=== PATIENT | male | born 1990 | race African-American/Black ===

== ENCOUNTER 2020-03-09 15:14 | Emergency (ER) | payer MEDICAID, SELFPAY ==
[2020-03-09 15:21] VITALS: BP 156/105; PULSE 88; RESP 20; TEMP 36.1; O2SAT 98
--- NOTE | 2020-03-09 15:30 | ED.EAR ---
HPI - Ear Problem General Chief complaint: Ear Stated complaint: ear ache Time Seen by Provider: 03/09/20 15:23 Source: patient Mode of arrival: ambulatory Limitations: no limitations History of Present Illness HPI Narrative: Patient is a 30-year-old male who presents complaining of right ear pain x2 to 3 days. He reports multiple ear infections in the past. He denies taking [id number] medications for pain. He denies all other complaints. MD Complaint: ear pain Location: right ear Related Data Allergies Allergy/AdvReac Type Severity Reaction Status Date / Time amoxicillin AdvReac Unknown Hives Verified 03/09/20 15:43 Review of Systems Review of Systems: Narrative: CONSTITUTIONAL: Denies fever, chills, or sweats. EYES: Denies visual changes, redness, or discharge. ENT: Denies rhinorrhea, congestion, sore throat, reports right otalgia CARDIOVASCULAR: Denies chest pain, palpitations, or edema. RESPIRATORY: Denies cough or dyspnea. GASTROINTESTINAL: Denies abdominal pain, nausea, vomiting, or diarrhea. GENITOURINARY: Denies dysuria or hematuria. SKIN: Denies rash or itching. MUSCULOSKELETAL: Denies back pain, joint pain, or myalgia. NEUROLOGIC: Denies headache, numbness, dizziness, or weakness. PSYCHIATRIC: Denies anxiety or depression. [facility] Past Medical History Medical History (Updated 03/09/20 @ 15:43 by HIMANSHU Langford) No significant family history Otitis media Surgical History Surgical History (Updated 03/09/20 @ 15:32 by HIMANSHU Langford) No significant past surgical history Social History Social History (Updated 03/09/20 @ 15:33 by HIMANSHU Langford) Smoking status: Never smoker Alcohol intake: current Alcohol use details: Socially Substance use: never Exam Narrative: Exam Narrative: GENERAL: Well-appearing, well-nourished, and in no acute distress. HEAD: Normocephalic, atraumatic. EYES: EOMI. No redness or drainage. Conjunctiva are normal. ENT: Mucous membranes pink and moist. Nares clear. No rhinorrhea. Right TM erythematous, cloudy and bulging, left TM normal, throat normal. Uvula midline. NECK: AROM. Supple. No lymphadenopathy. CHEST: No respiratory distress. Clear to auscultation. HEART: Regular rate and rhythm. No murmur appreciated. Normal peripheral pulses. SKIN: Warm, dry, no rash. NEURO: No focal deficits. Alert and oriented x3. Gait steady. PSYCH: Normal affect. No signs of depression or anxiety. Course Vital Signs Vital signs: Vital Signs Temperature 36.1 C L 03/09/20 15:21 Pulse Rate 88 03/09/20 15:21 Respiratory Rate 20 03/09/20 15:21 Blood Pressure 156/105 H 03/09/20 15:21 Pulse Oximetry 98 03/09/20 15:21 Temperature 36.1 C L 03/09/20 15:21 Pulse Rate 88 03/09/20 15:21 Respiratory Rate 20 03/09/20 15:21 Blood Pressure 156/105 H 03/09/20 15:21 Pulse Oximetry 98 03/09/20 15:21 Reviewed. Patient has been instructed to follow-up with his PCP regarding his blood pressure. Medical Decision Making MDM Narrative Medical decision making narrative: Patient has acute right otitis media. Patient be treated with antibiotics at this time. He reports a few episodes of otitis media and otitis externa in the past 5 years. He reports seeing ENT in the past as well. Patient to be started on Augmentin at this time and to follow-up with ENT or pcp as needed. Patient is stable for discharge to home with outpatient follow-up. Differential Diagnosis Differential Diagnosis: Otitis media Vital Signs Vital Signs: Vital Signs Temperature 36.1 C L 03/09/20 15:21 Pulse Rate 88 03/09/20 15:21 Respiratory Rate 20 03/09/20 15:21 Blood Pressure 156/105 H 03/09/20 15:21 Pulse Oximetry 98 03/09/20 15:21 Temperature 36.1 C L 03/09/20 15:21 Pulse Rate 88 03/09/20 15:21 Respiratory Rate 20 03/09/20 15:21 Blood Pressure 156/105 H 03/09/20 15:21 Pulse Oximetry 98 03/09/20 15:21 Critical Care Ti
[2020-03-09 16:15] VITALS: BP 116/68; PULSE 75; RESP 16; O2SAT 98
== END 2020-03-09 16:16 | disposition home or self-care (01) ==
PROVIDERS: Emergency Provider Nurse Practitioner
DX: H66.001 Acute suppurative otitis media without spontaneous rupture of ear drum, right ear (principal)
CPT/HCPCS: 99283

== ENCOUNTER 2021-06-06 08:17 | Emergency (ER) | payer OTHER, SELFPAY ==
--- NOTE | ~2021-06-06 | XR_ITS ---
EXAMINATION: XR chest 1V portable 06/06/2021 08:48 INDICATION: Cough and congestion. PROCEDURE: AP portable chest COMPARISON: No prior studies for comparison. FINDINGS: The lungs are clear. The cardiomediastinal silhouette is within normal limits. There are no pleural effusions. There is no pneumothorax suspected. IMPRESSION: 1: NO ACUTE CARDIOPULMONARY DISEASE. Reviewed, dictated and finalized at location [facility]. [facility]
[2021-06-06 08:26] VITALS: BP 143/101; PULSE 90; RESP 18; TEMP 36.4; O2SAT 99
--- NOTE | 2021-06-06 08:39 | ED.URI ---
HPI - URI/Sore Throat General Chief Complaint: Upper Respiratory Infection Stated Complaint: cough, sob, asthma Time Seen by Provider: 06/06/21 08:39 Source: patient Mode of arrival: ambulatory Limitations: no limitations History of Present Illness HPI Narrative: The patient is a 31-year-old male with a history of asthma presenting for evaluation of cough. Patient states that he has felt unwell over the past week with increasing cough and right-sided rib pain. Patient states he has had 2 negative Covid tests. He denies any frontal chest pain. Patient states he has had coughing and mild wheezing. States that he was diagnosed with asthma many years ago does not currently have an albuterol inhaler is not currently on any steroid therapy. Patient states in the past when this does happen he has benefited greatly from steroid therapy. He denies fever, chills, nausea, vomiting, abdominal pain or diarrhea. He denies current chest pain. He denies pleuritic pain. No calf swelling or leg pain. No loss of sense of taste or smell. Related Data Allergies Allergy/AdvReac Type Severity Reaction Status Date / Time amoxicillin AdvReac Unknown Hives Verified 06/06/21 08:28 Review of Systems Review of Systems: CONSTITUTIONAL: Denies fever, chills, or sweats. EYES: Denies visual changes, redness, or discharge. ENT: Reports rhinorrhea and congestion CARDIOVASCULAR: Denies chest pain, palpitations, or edema. RESPIRATORY: Reports cough without shortness of breath GASTROINTESTINAL: Denies abdominal pain, nausea, vomiting, or diarrhea. GENITOURINARY: Denies dysuria or hematuria. SKIN: Denies rash or itching. MUSCULOSKELETAL: Denies back pain, joint pain, or myalgia. NEUROLOGIC: Denies headache, numbness, or weakness. [facility] Past Medical History Medical History No significant family history Otitis media Surgical History Surgical History No significant past surgical history Social History Social History Smoking status: Never smoker Alcohol intake: current Alcohol use details: Socially Substance use: never Exam Narrative: GENERAL: Awake, alert, conversant HEAD: Normocephalic, atraumatic. EYES: PERRLA and EOMI. ENT: Nares clear, no rhinorrhea or epistaxis. Mucous membranes moist. NECK: Supple. CHEST: No respiratory distress, breathing even and non labored, no reproducible chest wall pain. Mild expiratory wheezing bilateral bases. HEART: Regular rate, sinus rhythm ABDOMEN:Non distended, non tender EXTREMITIES: Normal range of motion. No edema. No calf tenderness bilaterally. SKIN: Warm, dry, no rash. NEURO:No focal deficits. Alert and oriented x3 Course Vital Signs Vital signs: Vital Signs Temperature 36.4 C L 06/06/21 08:26 Pulse Rate 90 06/06/21 08:26 Respiratory Rate 18 06/06/21 08:26 Blood Pressure 143/101 H 06/06/21 08:26 Pulse Oximetry 99 06/06/21 08:26 Temperature 36.4 C L 06/06/21 08:26 Pulse Rate 90 06/06/21 08:52 Respiratory Rate 18 06/06/21 08:52 Blood Pressure 143/101 H 06/06/21 08:26 Pulse Oximetry 99 06/06/21 08:26 MDM - URI/Sore Throat MDM Narrative Medical decision making narrative: Patient presenting for evaluation of cough with concern for asthma exacerbation. Patient with cough, congestion this week, right-sided rib pain. On exam, patient is hemodynamically stable, no reproducible chest pain on exam. EKG without acute ischemic changes. Labs are reassuring. Covid swab is negative. No leukocytosis or anemia. Chest x-ray without evidence of pneumothorax, infiltrates. No evidence of rib fracture. At this point, would recommend continued care with albuterol, steroids. He is not having any significant shortness of breath. No hypoxia. PE seems unlikely and he does not meet PERC criteria. Presentation seem
[2021-06-06] MEDS: IPRATROPIUM BR 0.02% INH SOLN 0.5 MG/2.5 ML VIAL INHALATION (08:51)
[2021-06-06] MEDS: ALBUTEROL SULFATE NEB 2.5 MG/0.5 ML INH 5 MG INHALATION (08:51)
[2021-06-06 08:52] VITALS: PULSE 90; RESP 18
--- NOTE | 2021-06-06 09:14 | ECG_ITS ---
Measurements Intervals [place] Rate: 82 P: 41 CT: 156 QRS: -7 QRSD: 117 T: 37 QT: 341 QTc: 400 Interpretive Statements SINUS RHYTHM INCOMPLETE RIGHT BUNDLE BRANCH BLOCK NONSPECIFIC ST ELEVATION IN DIFFUSE LEADS BORDERLINE ECG Electronically Signed On 06-06-2021 15:59:53 [employer] by Clyde Trammell D.O.
[2021-06-06 09:40] LABS: Alanine Aminotransferase 22 U/L (4-50); Albumin Level 4.4 g/dL (3.5-5.1); Alkaline Phosphatase 98 U/L (38-126); Anion Gap 7 mmol/L (8-16); Aspartate Amino Transferase 22 U/L (17-59); Bilirubin,Total 0.5 mg/dL (0.2-1.3); Blood Urea Nitrogen 11 mg/dL (9-20); Calcium 8.8 mg/dL (8.4-10.2); Carbon Dioxide 27 mmol/L (22-30); Chloride 105 mmol/L (98-107); Estimated CRCL calculation 125 ml/min; Estimated Glomerular Filt Rate > 60; Glucose 109 mg/dL (65-110); Potassium 3.7 mmol/L (3.4-5.0); Sodium 139 mmol/L (137-145)
[2021-06-06 09:46] LABS: Basophils Percent Auto 0.4 % (0.2-1.2); Eosinophils Absolute Auto 0.3 K/mm3 (0-0.3); Eosinophils Percent Auto 5.2 % (0-4.4); Hemoglobin 15.1 g/dL (14.0-18.0); Immature Granulocyte Absolute 0.01 K/mm3 (0.00-0.031); Immature Granulocyte Percent A 0.2 % (0-0.5); Lymphocytes Absolute Auto 1.51 K/mm3 (0.9-3.2); Lymphocytes Percent Auto 29.1 % (18.3-44.2); Mean Corpuscular HGB Conc 33.6 g/dl (32-36); Mean Corpuscular Hemoglobin 26.6 pg (26-34); Mean Corpuscular Volume 79.4 fl (80-100); Mean Platelet Volume 10.2 fl (7.4-10.4); Monocytes Absolute Auto 0.5 K/mm3 (0.1-0.6); Monocytes Percent Auto 9.2 % (2.6-8.5); Neutrophils Absolute Auto 2.9 K/mm3 (1.3-6.7); Neutrophils Percent Auto 55.9 % (45.5-73.1); Platelet Count Result 248 k/mm3 (150-375); Red Blood Count 5.67 M/mm3 (4.6-6.20); Red Cell Distribution Width 12.9 % (11.5-14.5); White Blood Count 5.2 K/mm3 (4.5-10.0)
[2021-06-06 10:01] LABS: Troponin I < 0.012 ng/mL (0.000-0.034)
[2021-06-06 10:26] LABS: SARS-CoV-2 RNA PCR Negative
[2021-06-06 10:45] VITALS: BP 142/95; PULSE 85; RESP 18; TEMP 36.7; O2SAT 99
== END 2021-06-06 10:46 | disposition home or self-care (01) ==
PROVIDERS: Emergency Provider Emergency Medicine
DX: J06.9 Acute upper respiratory infection, unspecified (principal); J45.901 Unspecified asthma with (acute) exacerbation; Z20.822 Contact with and (suspected) exposure to COVID-19; I45.10 Unspecified right bundle-branch block
CPT/HCPCS: 36415; 71045; 80053; 84484; 85025; 93005; 94640; 99284; C9803; U0003; U0005

== ENCOUNTER 2022-01-09 21:29 | Emergency (ER) | payer OTHER, SELFPAY ==
[2022-01-09 21:31] VITALS: BP 152/98; PULSE 75; RESP 16; TEMP 36.3; O2SAT 99
--- NOTE | 2022-01-09 21:48 | ED.EAR ---
HPI - Ear Problem General Chief complaint: Ear <Sherley Hoty PA-C - Last Filed: 01/09/22 21:54> Stated complaint: right ear infection <FLORY Hays Last Filed: 01/09/22 21:54> Time Seen by Provider: 01/09/22 21:35 <Sherley Hoyt PA-C - Last Filed: 01/09/22 21:54> Source: patient <FLORY Hays Last Filed: 01/09/22 21:54> Mode of arrival: ambulatory <FLORY Hays Last Filed: 01/09/22 21:54> Limitations: no limitations <FLORY Hays Last Filed: 01/09/22 21:54> History of Present Illness HPI Narrative: Patient presents to the emergency department for right ear pain noted over the last 2 days. Reports swelling in the ear. Reports history of frequent ear infections. He sees an ENT doctor for this. Denies fevers. <Sherley Hoyt PA-C - Last Filed: 01/09/22 21:54> Related Data Home medications: Home Medications Medication Instructions Recorded Confirmed No Home Medications 01/09/22 01/09/22 <FLORY Hays Last Filed: 01/09/22 21:54> Allergies/adverse reactions: Allergies Allergy/AdvReac Type Severity Reaction Status Date / Time amoxicillin AdvReac Unknown Hives Verified 01/09/22 21:29 <FLORY Hays Last Filed: 01/09/22 21:54> Review of Systems Review of Systems: CONSTITUTIONAL: Denies fever ENT: Reports otalgia. <FLORY Hays Last Filed: 01/09/22 21:54> All systems reviewed & are unremarkable except as noted in HPI and below <FLORY Hays Last Filed: 01/09/22 21:54> [facility] Past Medical History Medical History: Medical History No significant family history Otitis media <Sherley Hoyt PA-C - Last Filed: 01/09/22 21:54> Surgical History Surgical History: Surgical History No significant past surgical history <Sherley Hoyt PA-C - Last Filed: 01/09/22 21:54> Social History Social History: Social History Smoking status: Never smoker Alcohol intake: current Alcohol use details: Socially Substance use: never <Sherley Hoyt PA-C - Last Filed: 01/09/22 21:54> Exam Narrative: GENERAL: Well-appearing, well-nourished, and in no acute distress. HEAD: Normocephalic, atraumatic. EYES: EOMI. ENT: Bilateral TMs pearly oneill non-bulging. Right external auditory canal with moderate edema and irritation. No mastoid tenderness or erythema NECK: Supple. No adenopathy or masses. CHEST: No respiratory distress. HEART: Regular rate EXTREMITIES: Normal range of motion. No edema. SKIN: Warm, dry, no rash. NEURO: No focal deficits. Alert and oriented x3. PSYCH: Normal mood and affect <Sherley Hoyt PA-C - Last Filed: 01/09/22 21:54> Course [employer]/PA Physician Supervision For this encounter, I have reviewed the [facility] documentation, treatment plan and medical decision making: I was available for consultation as needed. [] <Geo Dickinson DO - Last Filed: 01/09/22 23:16> Vital Signs Vital signs: Vital Signs Temperature 97.3 F L 01/09/22 21:31 Pulse Rate 75 01/09/22 21:31 Respiratory Rate 16 01/09/22 21:31 Blood Pressure 152/98 H 01/09/22 21:31 Pulse Oximetry 99 01/09/22 21:31 Temperature 97.3 F L 01/09/22 21:31 Pulse Rate 75 01/09/22 21:31 Respiratory Rate 16 01/09/22 21:31 Blood Pressure 152/98 H 01/09/22 21:31 Pulse Oximetry 99 01/09/22 21:31 <Sherley Hoyt PA-C - Last Filed: 01/09/22 21:54> Vital Signs Temperature 97.3 F L 01/09/22 21:31 Pulse Rate 75 01/09/22 21:31 Respiratory Rate 16 01/09/22 21:31 Blood Pressure 152/98 H 01/09/22 21:31 Pulse Oximetry 99 01/09/22 21:31 Temperature 97.3 F L 01/09/22 21:31 Pulse Rate 75 01/09/22 21:31 Respiratory Rate 16 01/09/22 21:31 Blood Pre
[2022-01-09] MEDS: IBUPROFEN 600 MG TABLET PO (22:02)
[2022-01-09] MEDS: CIPROFLOXACIN HCL 0.3% OP SOLN 2.5 ML BTL 3 DROP RIGHT EAR (22:03)
== END 2022-01-09 22:09 | disposition home or self-care (01) ==
LOC: ANHED 21:54
PROVIDERS: Emergency Provider Emergency Medicine
DX: H60.501 Unspecified acute noninfective otitis externa, right ear (principal)
CPT/HCPCS: 99283; A9270

== ENCOUNTER 2023-03-29 04:44 | Emergency (ER) | payer OTHER, SELFPAY ==
[2023-03-29 04:47] VITALS: BP 161/104; PULSE 86; RESP 20; TEMP 37.2; O2SAT 98
--- NOTE | 2023-03-29 07:17 | PC.NURSE ---
Report to EVELYN Frank
--- NOTE | 2023-03-29 07:23 | ED.URI ---
HPI - URI/Sore Throat General Chief Complaint: Upper Respiratory Infection Stated Complaint: Cough Time Seen by Provider: 03/29/23 05:59 History of Present Illness HPI Narrative: This is a 33-year-old male, with no significant past medical history, presenting to the emergency department complaining of cough sore chest pain, congestion and drainage from the right eye for the past several days. Patient states he has been exposed to his 3-year-old son with similar symptoms. He rates his pain 4/10. He has no other complaints at this time. Related Data Allergies Allergy/AdvReac Type Severity Reaction Status Date / Time amoxicillin AdvReac Unknown Hives Verified 01/09/22 21:29 Review of Systems Review of Systems: CONSTITUTIONAL: Denies fever, chills, or sweats. EYES: Right eye redness and discharge denies visual changes ENT: Rhinorrhea, congestion, sore throat denies otalgia. CARDIOVASCULAR: Denies chest pain, palpitations, or edema. RESPIRATORY: Cough productive of nonbloody yellow mucus denies dyspnea. GASTROINTESTINAL: Denies abdominal pain, nausea, vomiting, or diarrhea. GENITOURINARY: Denies dysuria or hematuria. SKIN: Denies rash or itching. MUSCULOSKELETAL: Generalized myalgias denies back pain, joint pain NEUROLOGIC: Denies headache, numbness, dizziness, or weakness. PSYCHIATRIC: Denies anxiety or depression. [facility] Past Medical History Medical History No significant family history Otitis media Surgical History Surgical History No significant past surgical history Social History Social History Smoking status: Never smoker Alcohol intake: current Alcohol use details: Socially Substance use: never Exam Narrative: GENERAL: Well-developed, well-nourished, and in no acute distress. HEAD: Normocephalic, atraumatic. EYES: PERRLA and EOMI. mild scleral injection and mucoid drainage noted from the right eye ENT: Nares with yellow mucus, no rhinorrhea or epistaxis. Mucous membranes moist. Oropharynx without tonsillar hypertrophy exudate or other lesions. Bilateral TMs pearly oneill nonbulging CHEST: Clear to auscultation. No respiratory distress. No wheezes rales or rhonchi HEART: Regular rate and rhythm. No murmur heard. Normal peripheral pulses. ABDOMEN: Soft, nontender, nondistended, normal active bowel sounds. EXTREMITIES: Normal range of motion. No edema. SKIN: Warm, dry, no rash. NEURO: Alert and oriented x3. Moving all 4 limbs purposefully. PSYCH: Normal mood and affect. Course Course Emergency Course: 08:28 - The patient tested negative for influenza, RSV and COVID. I suspect other viral upper respiratory infection and possible superseding bacterial conjunctivitis of the right eye. Will discharge with antibiotic eyedrops and recommendations for decongestants and NSAIDs. Discussed return and emergency precautions including signs/symptoms of respiratory distress and ACS. The patient voiced understanding and is comfortable with the plan. All questions answered to his satisfaction Vital Signs Vital signs: Vital Signs Temperature 98.9 F 03/29/23 04:47 Pulse Rate 86 03/29/23 04:47 Respiratory Rate 20 03/29/23 04:47 Blood Pressure 161/104 H 03/29/23 04:47 Pulse Oximetry 98 03/29/23 04:47 Oxygen Delivery Room Air 03/29/23 04:47 Temperature 98.9 F 03/29/23 04:47 Pulse Rate 86 03/29/23 04:47 Respiratory Rate 20 03/29/23 04:47 Blood Pressure 161/104 H 03/29/23 04:47 Pulse Oximetry 98 03/29/23 04:47 Oxygen Delivery Room Air 03/29/23 05:50 MDM - URI/Sore Throat MDM Narrative Medical decision making narrative: Plan: Labs, pain control, reassess Differential Diagnosis Differential diagnosis: Likely upper respiratory infection, viral infection, influenza and other (COVID, conjunctiviti
[2023-03-29] MEDS: BENZONATATE 100 MG CAPSULE 200 MG PO (07:44)
[2023-03-29] MEDS: ACETAMINOPHEN 500 MG TABLET 1000 MG PO (07:44)
[2023-03-29 08:22] LABS: Influenza A QL RT-PCR Negative (Negative); Influenza B QL RT-PCR Negative (Negative); RSV RNA, RT-PCR Negative (Negative); SARS-CoV-2 RNA PCR Negative (Negative)
== END 2023-03-29 08:42 | disposition home or self-care (01) ==
PROVIDERS: Emergency Provider Preventive Medicine Aerospace Medicine
DX: J06.9 Acute upper respiratory infection, unspecified (principal); Z20.822 Contact with and (suspected) exposure to COVID-19; H10.31 Unspecified acute conjunctivitis, right eye
CPT/HCPCS: 87637; 99283; A9270